=== PATIENT | male | born 1955 | race Caucasian/White ===

== ENCOUNTER 2022-02-06 08:18 | Inpatient (IN) | payer MEDICARE, OTHER ==
[~2022-02-06] VITALS: Ht 172.7 cm; Wt 71.0 kg
[2022-02-06] VITALS (31 sets, daily range): BP systolic 102–167; BP diastolic 41–101
[2022-02-06] MEDS ORDERED: normal saline 1000ml 1,000 ML IV PRN (08:50)
[2022-02-06] MEDS ORDERED: albumin 25% 100mL bottle x 1 IV PRN (08:50)
[2022-02-06 09:15] LABS: BASOPHILS % (AUTO) 0.5 % (0-1); EOSINOPHILS # (AUTO) 0.1 X10'3 (0-0.9); HEMATOCRIT 47.6 % (42.0-52.0); HEMOGLOBIN 16.4 g/dl (14.0-17.9); LYMPHOCYTES % (AUTO) 33.4 % (21-51); MEAN CORPUSCULAR HEMOGLOBIN 32.5 PG (27.0-31.0); MEAN CORPUSCULAR HGB CONC 34.4 g/dL (33.0-36.5); MEAN CORPUSCULAR VOLUME 94.4 FL (78-98); MEAN PLATELET VOLUME 7.1 FL (7.4-10.4); MONOCYTES # (AUTO) 0.4 X10'3 (0-0.9); MONOCYTES % (AUTO) 7.1 % (2-12); NEUTROPHILS # (AUTO) 3.5 X10'3 (1.8-7.7); PLATELET COUNT 301 X10'3 (140-440); RED BLOOD COUNT 5.05 X10'6 (4.70-6.10); RED CELL DISTRIBUTION WIDTH 12.5 % (11.5-14.5)
[2022-02-06] MEDS ORDERED: BENA1TAB73 PO (09:18)
[2022-02-06] MEDS ORDERED: ATOR20TA66 PO (09:18)
[2022-02-06] MEDS ORDERED: LIDOcaine 1%/PF 5ML 10 MG/ML VIAL ONE ×2 (10:50→16:18)
[2022-02-06] MEDS ORDERED: midazolam 1 mg/ML 2ml injection ONE (11:06)
[2022-02-06] MEDS ORDERED: fentaNYL/PF 50MCG/1 ML 2ML syringe ONE (11:07)
--- NOTE | 2022-02-06 13:35 | NUR ---
CXR read and a small pneumothorax was noted, will repeat CXR in 1 hour. Patient informed of this states for a period of about 20 minutes experienced chest heaviness but then resolved.
--- NOTE | 2022-02-06 15:12 | NUR ---
Second CXR shows pneumothorax, Dr. Ervin will take patient back into procedure to place a Chest tube and will admit patient overnight to allow pneumothorax to resolve.
[2022-02-06] MEDS ORDERED: magnesium 4gm in 100ml NS 100 ML IV PRN (18:10)
[2022-02-06] MEDS ORDERED: magnesium hydroxide 30ml (MOM) UD suspension PO PRN (18:10)
[2022-02-06] MEDS ORDERED: normal saline 1000ml 1,000 ML IV SCH (18:10)
[2022-02-06] MEDS ORDERED: POTASSIUM BICARB 20meq eff tab 20 MEQ TABLET.EFF PO PRN ×2 (18:10)
[2022-02-06] MEDS ORDERED: diphenhydrAMINE 25mg capsule PO PRN (18:10)
[2022-02-06] MEDS ORDERED: magnesium 2GM in 50ml NS 50 ML IV PRN (18:10)
[2022-02-06] MEDS ORDERED: HYDROcodone/acetaminophen 10/325mg tab PO PRN (18:10)
[2022-02-06] MEDS ORDERED: HYDROcodone/acetaminophen 5mg/325mg tablet PO PRN (18:10)
[2022-02-06] MEDS ORDERED: acetaminophen 650mg rectal suppository RC PRN (18:10)
[2022-02-06] MEDS ORDERED: ondansetron/PF 4mg/2ml inj IV PRN (18:10)
[2022-02-06] MEDS ORDERED: mag hydrox/Alum hydrox/simeth 30ml oral suspension PO PRN (18:10)
[2022-02-06] MEDS ORDERED: acetaminophen 325mg tablet PO PRN ×2 (18:10)
[2022-02-06] MEDS ORDERED: potassium CL 10mEq/100ml bag 100 ML IV PRN (18:10)
[2022-02-06] MEDS ORDERED: bisacodyl 10mg suppository rectal RC PRN (18:10)
[2022-02-06] MEDS ORDERED: morphine 2 MG/ML inj. syringe IV PRN ×2 (18:10)
[2022-02-06] MEDS ORDERED: magnesium Cl slow-release 64mg tablet PO PRN (18:10)
--- NOTE | 2022-02-06 18:40 | NUR ---
Patient in room ICU 2039. I have received report from Marla HUGHES and had the opportunity to ask questions and assume patient care.
--- NOTE | 2022-02-06 18:42 | NUR ---
Gave report to Sean HUGHES in ICU. Patient to transfer to ICU room 2039 for overnight observation.
[2022-02-06] MEDS ORDERED: K and/or MAG REPLACEMENT MC SCH (20:00)
[2022-02-06] MEDS: docusate sod 100mg capsule PO SCH (20:00)
[2022-02-06] MEDS: HYDROchlorothiazide 12.5mg capsule PO SCH (20:42)
[2022-02-06] MEDS: heparin, porcine 5000 units/ml vial SQ SCH (20:42)
[2022-02-06] MEDS: atorvastatin 20mg tablet PO SCH (20:43)
[2022-02-06] MEDS: lisinopril 10 MG tablet PO SCH (20:43)
[2022-02-07] VITALS (10 sets, daily range): BP systolic 90–126; BP diastolic 63–91
[2022-02-07 06:13] LABS: BASOPHILS % (AUTO) 0.3 % (0-1); EOSINOPHILS # (AUTO) 0.1 X10'3 (0-0.9); EOSINOPHILS % (AUTO) 1.4 % (0-6); HEMATOCRIT 47.5 % (42.0-52.0); HEMOGLOBIN 16.2 g/dl (14.0-17.9); LYMPHOCYTES # (AUTO) 1.8 X10'3 (1.1-4.8); LYMPHOCYTES % (AUTO) 29.3 % (21-51); MEAN CORPUSCULAR HEMOGLOBIN 32.7 PG (27.0-31.0); MEAN CORPUSCULAR HGB CONC 34.1 g/dL (33.0-36.5); MEAN PLATELET VOLUME 7.4 FL (7.4-10.4); MONOCYTES # (AUTO) 0.5 X10'3 (0-0.9); MONOCYTES % (AUTO) 8.2 % (2-12); NEUTROPHILS # (AUTO) 3.8 X10'3 (1.8-7.7); NEUTROPHILS % (AUTO) 60.8 % (42-75); PLATELET COUNT 289 X10'3 (140-440); RED BLOOD COUNT 4.95 X10'6 (4.70-6.10); RED CELL DISTRIBUTION WIDTH 12.6 % (11.5-14.5); WHITE BLOOD COUNT 6.2 X10'3 (4.5-11.0)
[2022-02-07 06:32] LABS: ALANINE AMINOTRANSFERASE 20 U/L (12-78); ALBUMIN 3.7 G/DL (3.4-5.0); ALBUMIN/GLOBULIN RATIO 1.2 (1.1-1.5); ALKALINE PHOSPHATASE 92 IU/L (46-116); ANION GAP 8 (8-16); ASPARTATE AMINO TRANSFERASE 13 U/L (10-37); BILIRUBIN,TOTAL 0.7 MG/DL (0.1-1.0); BLOOD UREA NITROGEN 15 MG/DL (7-18); BUN/CREATININE RATIO 17.6 (5.4-32.0); CALCIUM 9.1 MG/DL (8.5-10.1); CHLORIDE 105 MMOL/L (99-107); CHOL/HDL RATIO 2.7 (0.00-4.99); CHOLESTEROL 140 MG/DL (0-200); CREATININE 0.85 MG/DL (0.60-1.10); GLUCOSE 103 MG/DL (70-104); HDL CHOLESTEROL 52 MG/DL (35-60); LDL CHOLESTEROL 77 MG/DL (50-100); MAGNESIUM 2.1 MG/DL (1.5-2.4); PHOSPHORUS 3.7 MG/DL (2.3-4.5); POTASSIUM 4.3 MMOL/L (3.5-5.1); SODIUM 141 MMOL/L (135-145); TOTAL CARBON DIOXIDE 27.9 MMOL/L (24-32); TOTAL PROTEIN 6.7 G/DL (6.4-8.2); TRIGLYCERIDES 53 MG/DL (20-135); eGFR 90 ML/MIN
[2022-02-07 06:40] LABS: HEMOGLOBIN A1C 5.7 % (4.5-6.2)
[2022-02-07] MEDS: HYDROchlorothiazide 12.5mg capsule PO SCH (08:05)
[2022-02-07] MEDS: lisinopril 10 MG tablet PO SCH (08:06)
[2022-02-07] MEDS: docusate sod 100mg capsule PO SCH (08:07)
[2022-02-07] MEDS: heparin, porcine 5000 units/ml vial SQ SCH (08:07)
[2022-02-07] MEDS: atorvastatin 20mg tablet PO SCH (08:07)
== END 2022-02-07 13:26 | disposition home or self-care (01) | DRG 201 ==
LOC: SSTAY O 08:18 → ICU 2S 17:30 → UNDOADMIN 17:30 → ICU 2S 18:11
PROVIDERS: ADMIT Family Medicine; ATTEND Family Medicine
PROC: 0BBL3ZX Excision of Left Lung, Percutaneous Approach, Diagnostic (ICD-10-PCS; principal; 2022-02-06)
PROC: 0W9B30Z Drainage of Left Pleural Cavity with Drainage Device, Percutaneous Approach (ICD-10-PCS; 2022-02-06)
DX: J95.811 Postprocedural pneumothorax (principal); R91.1 Solitary pulmonary nodule; E78.5 Hyperlipidemia, unspecified; I10 Essential (primary) hypertension; E07.9 Disorder of thyroid, unspecified; Y92.230 Patient room in hospital as the place of occurrence of the external cause; Y84.8 Other medical procedures as the cause of abnormal reaction of the patient, or of later complication, without mention of misadventure at the time of the procedure; Z79.899 Other long term (current) drug therapy; Z80.0 Family history of malignant neoplasm of digestive organs; Z81.8 Family history of other mental and behavioral disorders
CPT/HCPCS: 32408; 32557; 36415; 71045; 77012; 80053; 80061; 83036; 83735; 84100; 85025; 85610; 99152; 99153; A4421; A4615; A6258; A6449; C1729; C1769; G0378; J1644; J2250; J3010; J3490; J7030